=== PATIENT | female | born 1955 | race Caucasian/White ===

== ENCOUNTER → 2021-05-01 | Outpatient (CLI) | payer BC ==
[2021-05-01 15:20] LABS: BASO # 0.01 K/mm3 (0.02-0.10); HEMATOCRIT 43.7 % (37.0-47.0); HEMOGLOBIN 14.5 g/dL (12.5-16.0); LYMPH# 1.84 K/mm3 (1.50-4.00); MEAN CELL VOLUME 93 fl (78-100); MEAN CORPUSCULAR HEMOGLOBIN 31 pg (27-31); MEAN CORPUSCULAR HGB CONC 33 g/dL (33-37); MEAN PLATELET VOLUME 8.8 fl (7.4-10.4); MONO # 0.27 K/mm3 (0.20-0.80); PLATELET COUNT 229 K/mm3 (130-400); RED BLOOD COUNT 4.71 M/mm3 (4.10-5.30); WHITE BLOOD COUNT 10.1 K/mm3 (4.8-10.8)
[2021-05-01 15:34] LABS: ALBUMIN 4.3 g/dL (3.4-4.8)
[2021-05-01 15:35] LABS: CALCIUM 9.9 mg/dL (8.3-10.5)
[2021-05-01 15:37] LABS: TOTAL PROTEIN 7.2 g/dL (6.2-8.1)
[2021-05-01 15:39] LABS: TOTAL BILIRUBIN 0.6 mg/dL (0.2-1.2)
== END ==
LOC: LAB 14:55
PROVIDERS: Nurse Practitioner Family
DX: R53.81 Other malaise (principal); R05.1 Acute cough